=== PATIENT | female | born 1975 | race Caucasian/White ===

== ENCOUNTER 2019-04-26 10:19 | Inpatient (IN) ==
[2019-04-26 10:59] LABS: Basophils # (auto) 0.05 K/uL (0-0.2); Basophils % (auto) 0.9 %; Eosinophils # (auto) 0.23 K/uL (0-0.5); Eosinophils % (auto) 3.9 %; Hematocrit (blood only) 37.8 % (37-47); Immature Granulocytes # (auto) 0.02 K/uL (0.00-0.02); Immature Granulocytes % (auto) 0.3 %; Lymphocytes # (auto) 1.69 K/uL (1.2-3.4); Mean Corpuscular Hemoglobin 30.7 pg (25-34); Mean Corpuscular Hgb Conc 34.4 g/dL (32-36); Mean Corpuscular Volume 89.2 fL (80-100); Monocytes # (auto) 0.52 K/uL (0.11-0.59); Monocytes % (auto) 8.9 %; Neutrophils # (auto) 3.32 K/uL (1.4-6.5); Platelet Count 280 K/uL (130-400); RDW Coefficient of Variation 12.9 % (11.5-14.5); RDW Standard Deviation 41.4 fL (36.4-46.3); Red Blood Count 4.24 M/uL (4.2-5.4); White Blood Count 5.83 K/uL (4.8-10.8)
[2019-04-26 11:15] LABS: Partial Thromboplastin Ratio 0.9; Partial Thromboplastin Time 24.5 Seconds (21.0-31.0); Prothrombin Time 10.1 Seconds (9.0-12.0)
[2019-04-26 11:18] LABS: Alanine Aminotransferase 23 U/L (12-78); Aspartate Aminotransferase 12 U/L (15-37); BUN Creatinine Ratio 15.7 (10-20); Blood Urea Nitrogen 14 mg/dl (7-18); Carbon Dioxide 24 mmol/L (21-32); Chloride 109 mmol/L (98-107); Creatinine Clr Calc Pharmacy 85.3 ml/min; Est GFR (African American) 93.3; Est GFR (Non-African American) 80.5; Glucose 101 mg/dl (70-99); Sodium 139 mmol/L (136-145)
--- NOTE | 2019-04-26 11:20 | XRay Report ---
XR chest 1V portable CLINICAL HISTORY: Chest pain. COMPARISON STUDY: No previous studies for comparison. FINDINGS: Lung volumes are normal. Lungs are clear. There is no pneumothorax or pleural effusion. Car diac size is normal. Mediastinal contours are normal. There is no evidence for pulmonary edema. IMPRESSION: No acute cardiopulmonary findings. Electronically signed by: Omar Basilio M.D. 04/26/2019 11:19 AM
[2019-04-26 11:22] LABS: Albumin Globulin Ratio 1.2 (0.9-2); Alkaline Phosphatase 52 U/L (45-117); Bilirubin,Total 0.5 mg/dl (0.2-1); Globulin 3.3 gm/dl (2.5-4.0); Total Protein 7.3 gm/dl (6.4-8.2); Troponin I < 0.015 ng/ml (0-0.045)
[2019-04-26] MEDS ORDERED: FAMOTIDINE 20MG/5ML IV PUSH IV STA (12:35)
[2019-04-26] MEDS ORDERED: ALUMINUM/MAGNESIUM SUSP 30 ML UDC PO STA (12:35)
[2019-04-26 12:51] LABS: D Dimer 2460 ug/L FEU (0-500)
[2019-04-26] MEDS ORDERED: SODIUM CHLORIDE 0.9% 1000ML 1,000 ML IV ONE (13:00)
[2019-04-26] MEDS ORDERED: OPTIRAY 320 125ml IV PRN (13:20)
--- NOTE | 2019-04-26 13:40 | CT Scan Report ---
CT ANGIOGRAPHY OF THE CHEST, PULMONARY EMBOLUS PROTOCOL CLINICAL HISTORY: Chest pain. COMPARISON STUDY: Chest radiograph performed earlier today. TECHNIQUE: Following IV administration of 120 mL of Optiray-320, helical axial images of the chest we re obtained utilizing the pulmonary embolus protocol. Maximal intensity projections and sagittal and coronal reformats were viewed on an independent 3D workstation. IV contrast was administered withou t complication. Automated exposure control was utilized for the study. A dose lowering technique wa s utilized adhering to the principles of ALARA. CT DOSE: 268.79 mGy.cm FINDINGS: No pulmonary emboli are identified. There is no thoracic aortic dissection. The size of th e heart is normal. There is no pericardial effusion. No axillary lymphadenopathy is present. Multiple moderately enlarged mediastinal lymph nodes are noted. Index subcarinal lymph node measures 1.4 cm i n short axis diameter. Index precarinal lymph node measures 1.3 cm in short axis diameter. There are mildly enlarged bilateral hilar lymph nodes. Central airways are patent. Note is made of an irregular 1.2 cm perifissural nodular opacity within the right middle lobe on axial image 127 of 243. Otherwis e, the lungs are clear. Bony thorax is unremarkable. Upper abdomen is unremarkable. IMPRESSION: 1. No pulmonary emboli identified. 2. Multiple moderately enlarged mediastinal lymph nodes with mildly enlarged bilateral hilar lymph no inna. This lymphadenopathy is nonspecific. A differential consideration is sarcoidosis. Lymphoma could appear similar. Metastatic disease is also within the differential but considered less likely. Pulmo nary consultation is recommended. 3. 1.2 cm perifissural nodular opacity within the right middle lobe. This favors a mild infectious or inflammatory process. A neoplastic process is considered less likely however a follow-up chest CT in 3 months is recommended. Electronically signed by: Omar Basilio M.D. 04/26/2019 1:39 PM
--- NOTE | 2019-04-26 15:19 | History & Physical Report ---
Date of Service April 26, 2019 Assessment & Plan (1) Lymphadenopathy, hilar: This is a 44-year-old female with a PMH of anxiety, eosinophilic esophagitis and palpitations who presents to the ED with worsening chest pain since yesterday and was found to have an abnormal chest CTA. -Endorses nonspecific, constant chest pain for the past year that does not seem to be worse with exertion -No shortness of breath. Oxygen saturation of 99% on room air -D-dimer was elevated at 2460 and chest CTA negative for PE but showed multiple moderately enlarged mediastinal lymph nodes with mildly enlarged bilateral hilar lymph nodes. This lymphadenopathy is nonspecific and a differential conside ration is sarcoidosis or lymphoma. There is also presence of a 1.2 cm perifissural nodular opacity within the right middle lobe -ED provider discussed with Dr. Delcid of pulmonology, who recommends a b ronchoscopy tomorrow or Tuesday -ESR, CRP, procalcitonin, TSH, CHANTLEL and GLORIA ordered -NPO after midnight (2) Chest pain: Seems non-cardiac in nature. Initial troponin negative, EKG with normal sinus rhythm -Will order an additional troponin for completeness -Anxiety likely contributing, also possible underlying lung pathology (3) Anxiety: Continue Buspar -Only takes as needed, trialed Lexapro in the past but did not tolerate well (4) Eosinophilic esophagitis: Controlled with PPI (5) Palpitations: Currently asymptomatic -EKG with normal sinus rhythm -Continue propranolol DVT Ppx: Wilbert grace Code status: FULL PCP: Lindy Dispo: Admitted to med/surg. Plan to return home once medically stable. Patient seen in collaboration with Dr. Kyle. Please see addendum. History of Present Illness Chief Complaint: Chest pain Primary Care Provider: Arnulfo Israel MD This is a 44-year-old female with a PMH of anxiety, eosinophilic esophagitis and palpitations who presents to the ED with worsening chest pain since yesterday. Patient endorses nonspecific, constant chest pain for the past year that does not seem to be worse with exertion. Pain is nonradiating and not associated with diaphoresis, shortness of breath, nausea or vomiting. Used to associate chest discomfort with palpitations but lately chest pain has worsened. Has been taking propranolol for the past year for palpitations but denies any further work-up. Patient increased her dose to twice a day a few weeks ago without improvement. Denies any personal or family history of coronary artery disease. No history of diabetes. Former smoker. In ED, patient found to be afebrile and hemodynamically stable. Oxygen saturation of 99% on room air. No leukocytosis or electrolyte abnormalities. Initial troponin negative. D-dimer elevated at 2460 so chest CTA was obtained that was negative for PE but showed multiple moderately enlarged mediastinal lymph nodes with mildly enlarged bilateral hilar lymph nodes. This lymphadenopathy is nonspecific and a differential consideration is sarcoidosis or lymphoma. There is also presence of a 1.2 cm perifissural nodular opacity within the right middle lobe. ED provider discussed with Dr. Delcid of pulmonology, who recommends a bronchoscopy tomorrow or Tuesday. Currently, patient is comfortable with 2/10 chest pain. Denies any fever, chills, lightheadedness, visual changes, palpitations, shortness of breath, nausea, vomiting, abdominal pain, dysuria or constipation. Endorses diarrhea for the past 2 years. Allergies Allergy/AdvReac Type Severity Reaction Status Date / Time No Known Allergies Allergy Verified 04/26/19 13:02 Home Medications Home Medications Medication Instructions Recorded Confirmed Type omeprazole 20 mg PO BID 01/16/19 04/26/19 History propranolol 10 mg PO BID 01/16/19 04/26/19 History buspirone 5 mg PO DAILY PRN 04/26/19 04/26/19 History Past Med/Surg History Medical History Acid reflux (Chronic) Eosinophilic esophagitis (Chronic) Palpitations (Chronic) Surgical History History of section (Chronic) Family History Other Coronary heart disease Crohn's disease Social History Preferred Language: Kazakh Communication Ability: Effective Furnace Puncher Required: No Beliefs That Will Affect Care: None Current Living Situation: Spouse current occupational status: employed Other Information That Helps Us Care for You: No Feels Safe at Home: Yes Safety Concerns: Feels Safe At This Time Smoking Status: Former smoker Hx Alcohol Use: Yes Alcohol type: wine and hard liquor Alcohol Intake Frequency: Weekly Hx Substance Use: No Review of Systems Review of Systems: At least ten systems reviewed and negative except as noted in the HPI. Physical Exam Physical Exam: General Appearance: WD/WN, vitals as above, NAD, sitting up in bed, pleasant, conversing easily Head: normocephalic, atraumatic Eyes: normal inspection, PERRL, conjunctivae normal, anicteric sclerae ENT: external ear and nose normal, oropharynx normal Neck: trachea midline, no thyromegaly normal visual inspection Respiratory: lungs clear to auscultation, no wheeze, rales, rhonchi. Normal insp/exp effort, no accessory muscle use Cardiovascular: regular rate, rhythm, no murmur, normal peripheral pulses. Vessels: no JVD or carotid bruit Chest: normal inspection of chest, no TTP of chest Abdomen/GI: normal bowel sounds, soft, nontender, no hepatosplenomegaly Extremities/Musculoskelatal: no cyanosis or clubbing, extremities motor strength 5/5 Neurologic: PERRL, EOMI, accommodation nl, no face palsy, no dysarthria CN's II-XI intact bilaterally and moves all extremities Psychiatric: A+Ox3, + anxious Skin: no rashes, normal color, warm/dry Results & Data Vital Signs (Past 12 Hours) Vital Signs Temp Pulse Pulse Resp BP BP Pulse Ox 04/26/19 14:20 68 20 112/68 99 04/26/19 12:31 74 20 122/63 98 04/26/19 11:43 63 20 132/71 94 04/26/19 10:32 36.9 C 66 20 119/72 100 Laboratory Results Short CBC 04/26/19 04/26/19 04/26/19 Range/Units 10:49 10:49 10:49 WBC 5.83 (4.8-10.8) K/uL RBC 4.24 (4.2-5.4) M/uL Hgb 13.0 (12.0-16.0) g/dL Hct 37.8 (37-47) % MCV 89.2 (80-100) fL MCH 30.7 (25-34) pg MCHC 34.4 (32-36) g/dL RDW Std Deviation 41.4 (36.4-46.3) fL RDW Coeff of Nabil 12.9 (11.5-14.5) % Plt Count 280 (130-400) K/uL MPV 10.0 (7.4-10.4) fL Immature Gran % (Auto) 0.3 % Neut % (Auto) 57.0 % Lymph % (Auto) 29.0 % Waldo % (Auto) 8.9 % Eos % (Auto) 3.9 % Baso % (Auto) 0.9 % Immature Gran # (Auto) 0.02 (0.00-0.02) K/uL Neut # (Auto) 3.32 (1.4-6.5) K/uL Lymph # (Auto) 1.69 (1.2-3.4) K/uL Waldo # (Auto) 0.52 (0.11-0.59) K/uL Eos # (Auto) 0.23 (0-0.5) K/uL Baso # (Auto) 0.05 (0-0.2) K/uL PT 10.1 (9.0-12.0) Seconds INR 1.0 (0.9-1.1) APTT 24.5 (21.0-31.0) Seconds PTT Ratio 0.9 D-Dimer (0-500) ug/L FEU Sodium 139 (136-145) mmol/L Potassium 4.0 (3.5-5.1) mmol/L Chloride 109 H (98-107) mmol/L Carbon Dioxide 24 (21-32) mmol/L Anion Gap 7.0 (3-11) BUN 14 (7-18) mg/dl Creatinine 0.88 (0.6-1.2) mg/dl Est Cr Clr Drug Dosing 85.3 ml/min Est GFR ( Amer) 93.3 Est GFR (Non-Af Amer) 80.5 BUN/Creatinine Ratio 15.7 (10-20) Glucose 101 H (70-99) mg/dl Calcium 9.0 (8.5-10.1) mg/dl Total Bilirubin 0.5 (0.2-1) mg/dl AST 12 L (15-37) U/L ALT 23 (12-78) U/L Alkaline Phosphatase 52 (45-117) U/L Troponin I < 0.015 (0-0.045) ng/ml Total Protein 7.3 (6.4-8.2) gm/dl Albumin 4.0 (3.4-5.0) gm/dl Globulin 3.3 (2.5-4.0) gm/dl Albumin/Globulin Ratio 1.2 (0.9-2) 04/26/19 Range/Units 10:49 WBC (4.8-10.8) K/uL RBC (4.2-5.4) M/uL Hgb (12.0-16.0) g/dL Hct (37-47) % MCV (80-100) fL MCH (25-34) pg MCHC (32-36) g/dL RDW Std Deviation (36.4-46.3) fL RDW Coeff of Nabil (11.5-14.5) % Plt Count (130-400) K/uL MPV (7.4-10.4) fL Immature Gran % (Auto) % Neut % (Auto) % Lymph % (Auto) % Waldo % (Auto) % Eos % (Auto) % Baso % (Auto) % Immature Gran # (Auto) (0.00-0.02) K/uL Neut # (Auto) (1.4-6.5) K/uL Lymph # (Auto) (1.2-3.4) K/uL Waldo # (Auto) (0.11-0.59) K/uL Eos # (Auto) (0-0.5) K/uL Baso # (Auto) (0-0.2) K/uL PT (9.0-12.0) Seconds INR (0.9-1.1) APTT (21.0-31.0) Seconds PTT Ratio D-Dimer 2460 H* (0-500) ug/L FEU Sodium (136-145) mmol/L Potassium (3.5-5.1) mmol/L Chloride (98-107) mmol/L Carbon Dioxide (21-32) mmol/L Anion Gap (3-11) BUN (7-18) mg/dl Creatinine (0.6-1.2) mg/dl Est Cr Clr Drug Dosing ml/min Est GFR ( Amer) Est GFR (Non-Af Amer) BUN/Creatinine Ratio (10-20) Glucose (70-99) mg/dl Calcium (8.5-10.1) mg/dl Total Bilirubin (0.2-1) mg/dl AST (15-37) U/L ALT (12-78) U/L Alkaline Phosphatase (45-117) U/L Troponin I (0-0.045) ng/ml Total Protein (6.4-8.2) gm/dl Albumin (3.4-5.0) gm/dl Globulin (2.5-4.0) gm/dl Albumin/Globulin Ratio (0.9-2) BMP 04/26/19 10:49 Sodium 139 Potassium 4.0 Chloride 109 H Carbon Dioxide 24 BUN 14 Creatinine 0.88 Glucose 101 H Calcium 9.0 Cardiac Enzymes 04/26/19 Range/Units 10:49 Troponin I < 0.015 (0-0.045) ng/ml Liver Function 04/26/19 Range/Units 10:49 Total Bilirubin 0.5 (0.2-1) mg/dl AST 12 L (15-37) U/L ALT 23 (12-78) U/L Alkaline Phosphatase 52 (45-117) U/L Albumin 4.0 (3.4-5.0) gm/dl Diagnostic Findings CXR: IMPRESSION: No acute cardiopulmonary findings. Chest CTA: IMPRESSION: 1. No pulmonary emboli identified. 2. Multiple moderately enlarged mediastinal lymph nodes with mildly enlarged bilateral hilar lymph nodes. This lymphadenopathy is nonspecific. A differential consideration is sarcoidosis. Lymphoma could appear similar. Metastatic disease is also within the differential but considered less likely. Pulmonary consultation is recommended. 3. 1.2 cm perifissural nodular opacity within the right middle lobe. This favors a mild infectious or inflammatory process. A neoplastic process is considered less likely however a follow-up chest CT in 3 months is recommended. ECG Rhythm: normal sinus Supervising Physician Co-Signing Physician Notes I have seen and examined the patient with physician assistant import manager and would like to comment that: This is a 44-year-old female with a PMH of anxiety, eosinophilic esophagitis and palpitations who presents to the ED with worsening chest pain since yesterday, however also notes that she has been feeling on and off chest discomforts for one year. Patient was found to have elevated D-dimer and CTA of the lungs were performed and found abnormal results of Multiple moderately enlarged mediastinal lymph nodes with mildly enlarged bilateral hilar lymph nodes. This lymphadenopathy is nonspecific. A differential consideration is sarcoidosis. Lymphoma could appear similar. Metastatic disease is also within the differential but considered less likely. Pulmonary consultation is recommended. 1.2 cm perifissural nodular opacity within the right middle lobe. This favors a mild infectious or inflammatory process. A neoplastic process is considered less likely however a follow-up chest CT in 3 months is recommended. On physical exam: General: no acute distress Lungs: breathing on room air, normal respiratory effort, generally good air entry and exhalation Heart: regular rate Chest: no tenderness to palpation Abdomen: soft, nontender, positive bowel sounds Extremities: no edema Patients chest discomfort symptoms primarily attributed to these lung findings as admission EKG is nonischemic and negative troponin. The emergency room physician and patient discussed broad differentials for the Hilar Lymphadenopathy and suggested possibilities of autoimmune etiology such as sarcoidosis, or in a worst case scenario of malignancy such as lymphoma The emergency room physician then contacted pulmonary physician about lung biopsy to which pulmonary service initially agreed that they can do the invasive testing on 04/27/19. However, after further review, the pulmonary service will not be able to do bronchoscopy and Endobronchial ultrasound (EBUS) until Tuesday04/30/19 if the patient remains inpatient. Discussed with patient about these logistical issues. Efforts are being coordinated for outpatient workup if inpatient options are not possible Currently labs show normal white blood cell count, normal ESR of 18, normal C- reactive protein of less than 0.29, normal TSH of 1.22. Angiotensin Convert Enzymes pending Diagnosis of Hilar Lymphadenopathy, Chest pain (likely related to abnormal CTA scan findings of Hilar Hilar Lymphadenopathy), Anxiety (1) Chest pain Chest pain type: unspecified Qualified Code(s): R07.9 - Chest pain, unspecified
[2019-04-26] MEDS ORDERED: ACETAMINOPHEN 325 MG TAB PO PRN (16:15)
[2019-04-26] MEDS ORDERED: ONDANSETRON INJ 2 MG/ML 2 ML VIAL IV PRN (16:15)
[2019-04-26] MEDS ORDERED: POLYETHYLENE (MIRALAX) 17 GM PACK PO PRN (16:15)
[2019-04-26 16:22] LABS: C Reactive Protein < 0.29 mg/dl (0-0.29); Creatine Kinase 120 U/L (26-192)
[2019-04-26 17:27] LABS: Troponin I < 0.015 ng/ml (0-0.045)
[2019-04-26 19:39] LABS: T4 Free Thyroxine 1.01 ng/dl (0.8-1.6)
--- NOTE | 2019-04-26 20:00 | Discharge Summary ---
Date of Service April 26, 2019 Admission HPI Per Admitting Provider This is a 44-year-old female with a PMH of anxiety, eosinophilic esophagitis and palpitations who presents to the ED with worsening chest pain since yesterday. Patient endorses nonspecific, constant chest pain for the past year that does not seem to be worse with exertion. Pain is nonradiating and not associated with diaphoresis, shortness of breath, nausea or vomiting. Used to associate chest discomfort with palpitations but lately chest pain has worsened. Has been taking propranolol for the past year for palpitations but denies any further work-up. Patient increased her dose to twice a day a few weeks ago without improvement. Denies any personal or family history of coronary artery disease. No history of diabetes. Former smoker. In ED, patient found to be afebrile and hemodynamically stable. Oxygen saturation of 99% on room air. No leukocytosis or electrolyte abnormalities. Initial troponin negative. D-dimer elevated at 2460 so chest CTA was obtained that was negative for PE but showed multiple moderately enlarged mediastinal lymph nodes with mildly enlarged bilateral hilar lymph nodes. This lymphadenopathy is nonspecific and a differential consideration is sarcoidosis or lymphoma. There is also presence of a 1.2 cm perifissural nodular opacity within the right middle lobe. ED provider discussed with Dr. Delcid of pulmonology, who recommends a bronchoscopy tomorrow or Tuesday. Currently, patient is comfortable with 2/10 chest pain. Denies any fever, chills, lightheadedness, visual changes, palpitations, shortness of breath, nausea, vomiting, abdominal pain, dysuria or constipation. Endorses diarrhea for the past 2 years. Admission Exam Per Admitting Provider Physical Exam: General Appearance: WD/WN, vitals as above, NAD, sitting up in bed, pleasant, conversing easily Head: normocephalic, atraumatic Eyes: normal inspection, PERRL, conjunctivae normal, anicteric sclerae ENT: external ear and nose normal, oropharynx normal Neck: trachea midline, no thyromegaly normal visual inspection Respiratory: lungs clear to auscultation, no wheeze, rales, rhonchi. Normal insp/exp effort, no accessory muscle use Cardiovascular: regular rate, rhythm, no murmur, normal peripheral pulses. Vessels: no JVD or carotid bruit Chest: normal inspection of chest, no TTP of chest Abdomen/GI: normal bowel sounds, soft, nontender, no hepatosplenomegaly Extremities/Musculoskelatal: no cyanosis or clubbing, extremities motor strength 5/5 Neurologic: PERRL, EOMI, accommodation nl, no face palsy, no dysarthria CN's II-XI intact bilaterally and moves all extremities Psychiatric: A+Ox3, + anxious Skin: no rashes, normal color, warm/dry Principal Diagnosis Hilar Lymphadenopathy, Chest pain (likely related to abnormal CTA scan findings of Hilar Hilar Lymphadenopathy) or gastroesophageal reflux disease (GERD), Anxiety Discharge Exam Constitutional WD/WN, vitals as above Eyes PERRL, conjunctivae normal, anicteric sclerae EOM intact bilaterally ENMT external ear and nose normal, oropharynx normal Neck trachea midline, no thyromegaly normal visual inspection Respiratory normal respiratory effort, lungs clear to auscultation Cardiovascular RRR, no murmur, no edema Gastrointestinal (Abdomen) normal bowel sounds, soft, nontender, no hepatosplenomegaly Musculoskeletal no cyanosis or clubbing, extremities motor strength 5/5 Neurologic PERRL, EOMI, accommodation nl, no face palsy, no dysarthria CN's II-XI intact bilaterally Psychiatric A+Ox3, euthymic affect Discharge Data Allergies Allergy/AdvReac Type Severity Reaction Status Date / Time No Known Allergies Allergy Verified 04/26/19 13:02 Consultations 04/26/19 15:00 ED Decision to Admit Stat 04/26/19 16:15 Consult Pulmonology Routine Ordered Studies 04/26/19 13:00 CT angio chest PE protocol Stat Hospital Course (1) Lymphadenopathy, hilar: This is a 44-year-old female with a PMH of anxiety, eosinophilic esop hagitis and palpitations who presents to the ED with worsening chest pain since yesterday, however also notes that she has been feeling on and off chest discomforts for one year. Patient was found to have elevated D-dimer and CTA of the lungs were performed and found abnormal results of Multiple moderately enlarged mediastinal lymph nodes with mildly enlarged bilateral hilar lymph nodes. This lymphadenopathy is nonspecific. A differential consideration is sarcoidosis. Lymphoma could appear similar. Metastatic disease is also within the differential but considered less likely. Pulmonary co nsultation is recommended. 1.2 cm perifissural nodular opacity within the right middle lobe. This favors a mild infectious or inflammatory process. A neoplastic process is considered less likely however a follow-up chest CT in 3 months is recommended. On physical exam: General: no acute distress Lungs: breathing on room air, normal respiratory effort, generally good air entry and exhalation Heart: regular rate Chest: no tenderness to palpation Abdomen: soft, nontender, positive bowel sounds Extremities: no edema Patients chest discomfort symptoms primarily attributed to these lung findings as admission EKG is nonischemic and negative troponin. The emergency room physician and patient discussed broad differentials for the Hilar Lymphadenopathy and suggested possibilities of autoimmune etiology such as sarcoidosis, or in a worst case scenario of malignancy such as lymphoma The emergency room physician then contacted pulmonary physician about lung biopsy to which pulmonary service initially agreed that they can do the invasive testing on 04/27/19. However, after further review, the pulmonary service will not be able to do bronchoscopy and Endobronchial ultrasound (EBUS) until Tuesday04/30/19 if the patient remains inpatient. Discussed with patient about these logistical issues. Efforts are being coordinated for outpatient workup if inpatient options are not possible Currently labs show normal white blood cell count, normal ESR of 18, normal C- reactive protein of less than 0.29, normal TSH of 1.22. troponin negative x 2, CHANTELL screen pending, Angiotensin Convert Enzymes pending, Vitamin D,25 Hydrox pending, Vitamin D1,25 Dihydroxy pending Pulmonary service advised outpatient bronchoscopy and Endobronchial ultrasound (EBUS) which they will coordinate and advised that patient be discharged on gastric reflux medication in case GERD was contributory. Prescription of Pantoprazole 40 mg daily given to the patient Patient may continue home medications including buspirone and propranolol for anxiety and history of palpitations Total Time Total Time Spent Total Time Spent (In Minutes): 40 minutes Total Time Includes: Examination of the Patient, Discharge Planning, Medication Reconciliation and Communication With Other Providers Discharge Plan Discharge Items Patient Disposition: Home - Self-Care Reason For Visit: CHEST PAIN, ABNORMAL CHEST CTA RESULTS Discharge Diagnosis: Hilar Lymphadenopathy, Chest pain (likely related to abnormal CTA scan findings of Hilar Hilar Lymphadenopathy) or gastroesophageal reflux disease (GERD), Anxiety Condition on Discharge: Good Activity: Resume your previous activity Non-emergency contact: Primary Care Provider and [employer] K[employer] Call non-emergency contact if: you have any medication questions Follow-up/Referrals: Arnulfo Israel MD [Primary Care Provider] - Diet: Regular Addtl Attending Provider Instructions: This is a 44-year-old female with a PMH of anxiety, eosinophilic esophagitis and palpitations who presents to the ED with worsening chest pain since yesterday, however also notes that she has been feeling on and off chest discomforts for one year. Patient was found to have elevated D-dimer and CTA of the lungs were performed and found abnormal results of Multiple moderately enlarged mediastinal lymph nodes with mildly enlarged bilateral hilar lymph nodes. This lymphadenopathy is nonspecific. A differential consideration is sarcoidosis. Lymphoma could appear similar. Metastatic disease is also within the differential but considered less likely. Pulmonary consultation is recommended. 1.2 cm perifissural nodular opacity within the right middle lobe. This favors a mild infectious or inflammatory process. A neoplastic process is considered less likely however a follow-up chest CT in 3 months is recommended. On physical exam: General: no acute distress Lungs: breathing on room air, normal respiratory effort, generally good air entry and exhalation Heart: regular rate Chest: no tenderness to palpation Abdomen: soft, nontender, positive bowel sounds Extremities: no edema Patients chest discomfort symptoms primarily attributed to these lung findings as admission EKG is nonischemic and negative troponin. The emergency room physician and patient discussed broad differentials for the Hilar Lymphadenopathy and suggested possibilities of autoimmune etiology such as sarcoidosis, or in a worst case scenario of malignancy such as lymphoma The emergency room physician then contacted pulmonary physician about lung biopsy to which pulmonary service initially agreed that they can do the invasive testing on 04/27/19. However, after further review, the pulmonary service will not be able to do bronchoscopy and Endobronchial ultrasound (EBUS) until Tuesday04/30/19 if the patient remains inpatient. Discussed with patient about these logistical issues. Efforts are being coordinated for outpatient workup if inpatient options are not possible Currently labs show normal white blood cell count, normal ESR of 18, normal C- reactive protein of less than 0.29, normal TSH of 1.22. troponin negative x 2, CHANTELL screen pending, Angiotensin Convert Enzymes pending, Vitamin D,25 Hydrox pending, Vitamin D1,25 Dihydroxy pending Pulmonary service advised outpatient bronchoscopy and Endobronchial ultrasound (EBUS) which they will coordinate and advised that patient be discharged on gastric reflux medication in case GERD was contributory. Prescription of Pantoprazole 40 mg daily given to the patient Patient may continue home medications including buspirone and propranolol for anxiety and history of palpitations Pending Studies at Discharge: Yes Studies:: CHANTELL screen pending, Angiotensin Convert Enzymes pending, Vitamin D,25 Hydrox pending, Vitamin D1,25 Dihydroxy pending Stand-Alone Forms: Call Back Authorization, [facility], Smoking Cessation Medications and DC Order Prescriptions: New pantoprazole 40 mg tablet,delayed release (DR/EC) 40 mg PO DAILY 30 Days Qty: 30 RF: 0 Continued propranolol 10 mg tablet 10 mg PO BID RF: 0 buspirone 10 mg Tablet 5 mg PO DAILY PRN (Reason: Anxiety) RF: 0 Discontinued omeprazole 20 mg capsule,delayed release(DR/EC) 20 mg PO BID RF: 0 Discharge Orders: Discharge Order (Routine); Ordered 04/26/19 Ordered By: Bryan Kyle Admission Data Admit Date/Time: 04/26/19 15:23 Attending Provider: Bryan Kyle Admit Provider: Bryan Kyle Primary Care Provider: Arnulfo Israel Other Providers: Bryan Kyle ; Angelica Delcid
[2019-04-26] MEDS ORDERED: PROPRANOLOL HCL 10 MG TAB PO SCH (21:00)
[2019-04-26] MEDS ORDERED: PANTOprazole 40 MG TAB PO SCH (21:00)
--- NOTE | 2019-04-27 18:51 | Emergency Department Note ---
Entered by Wes Brown acting as a scribe for Radha Anderson DO History of Present Illness General Chief complaint: Chest Pain Stated complaint: CHEST PAIN, THROBBING NECK Time Seen by Provider: 04/26/19 11:11 Source: patient History of Present Illness Provider complaint: Chest pain Onset (ago): year(s) 1 Location: chest Pain Consistency: + constant and + other (Worsening) Maximum Pain Intensity: 3 Current Pain Intensity: 3 Quality: + burning, + sharp and + other (Throbbing) Relieved By: + none Associated symptoms: no nausea/vomiting and no shortness of breath The patient is a 44 year old female who presents to the Emergency Room with complaints of constant sharp, burning chest pain that has been ongoing for the past year. The patient rates the pain as a 3/10 and notes that last night the pain was worse than it normally is. The patient also endorses a throbbing pain in her neck and jaw that has been constant since the onset of the chest pain. T he patient reports that about a year ago she was put on beta blockers due to frequent palpitations but she has no other cardiac history. The patient notes that she has had a stress test, echo, and wore a monitor with exercise, which were all normal, but she had these done many years ago. The patient adds that for the past week she has been doubling her dose of beta blockers in the morning and night, taking 2 pills each time. Additionally the patient recalled that she was slightly lightheaded when she arrived at the ED, but she denies any nausea, or shortness of breath. She also recalls that last night she had some back pain which has resolved today. The patient does have a history of reflux and admits to not taking her Omeprazole regularly. She does note that this pain feels different than reflux. The patient has a family history of CAD and VA. Home Medications Home Medications Medication Instructions Recorded Confirmed Type propranolol 10 mg PO BID 01/16/19 04/26/19 History buspirone 5 mg PO DAILY PRN 04/26/19 04/26/19 History pantoprazole 40 mg PO DAILY 30 Days #30 tab 04/26/19 Rx Allergies Allergy/AdvReac Type Severity Reaction Status Date / Time No Known Allergies Allergy Verified 04/26/19 13:02 Past Med/Surg History Medical History Acid reflux (Chronic) Eosinophilic esophagitis (Chronic) Palpitations (Chronic) Surgical History History of section (Chronic) Family History Other Coronary heart disease Crohn's disease Social History Preferred Language: Albanian Communication Ability: Effective Mortgage Loan Specialist Required: No Beliefs That Will Affect Care: None Current Living Situation: Spouse current occupational status: employed Feels Safe at Home: Yes Smoking Status: Former smoker Hx Alcohol Use: Yes Alcohol type: wine and hard liquor Alcohol Intake Frequency: Weekly Hx Substance Use: No Review of Systems See HPI for pertinent positives & negatives. and A total of 10 systems reviewed and were otherwise negative Physical Exam Vital Signs Vital Signs - 24 hr 04/26/19 10:32 04/26/19 11:43 04/26/19 12:31 Temperature 98.4 F Temperature Source Oral Sepsis Recent Fever Within 48 Hours No Sepsis Action Taken by Nursing No Action Required Pulse Rate 66 Pulse Rate [Right Finger] 63 74 Pulse Rhythm Regular Pulse Strength Normal Respiratory Rate 20 20 20 Respiratory Effort / Characteristics Non-Labored Spontaneous Respiratory Depth Normal Respiratory Pattern Regular Blood Pressure 119/72 Blood Pressure [Right Arm] 132/71 122/63 Blood Pressure Mean 87 Blood Pressure Mean [Right Arm] 91 82 Blood Pressure Position Sitting Blood Pressure Position [Right Arm] Sitting Pulse Oximetry 100 94 98 Oxygen Delivery Method Room Air 04/26/19 14:20 Temperature Temperature Source Sepsis Recent Fever Within 48 Hours Sepsis Action Taken by Nursing Pulse Rate Pulse Rate [Right Finger] 68 Pulse Rhythm Pulse Strength Respiratory Rate 20 Respiratory Effort / Characteristics Respiratory Depth Respiratory Pattern Blood Pressure Blood Pressure [Right Arm] 112/68 Blood Pressure Mean Blood Pressure Mean [Right Arm] 82 Blood Pressure Position Blood Pressure Position [Right Arm] Pulse Oximetry 99 Oxygen Delivery Method Room Air GENERAL: alert, well appearing, well nourished, no distress, non-toxic EYE EXAM: normal conjunctiva, PERRL and EOM's grossly intact OROPHARYNX: no exudate, no erythema, lips, buccal mucosa, and tongue normal and mucous membranes are moist NECK: supple, no nuchal rigidity, no adenopathy, non-tender LUNGS: Clear to auscultation. Normal chest wall mechanics, no w/r/r HEART: no murmurs, S1 normal and S2 normal ABDOMEN: abdomen soft, non-tender, normo-active bowel sounds, no masses, no rebound or guarding. BACK: Back is symmetrical on inspection and there is no deformity, no midline tenderness, no CVA tenderness. SKIN: no rashes and no bruising UPPER EXTREMITIES: upper extremities are grossly normal. FROM, nml pulses b/l. LOWER EXTREMITIES: No pitting edema. FROM, nml pulses b/l. NEURO EXAM: Normal sensorium, cranial nerves II-XII grossly intact, normal speech, no gross weakness of arms, no gross weakness of legs. Course 1117: Past medical records reviewed. The patient was evaluated in room, and a complete history and physical examination were performed. 1300: I reevaluated the patient and updated her on results. 1426: I spoke to Dr. Bhavin Larose [facility] Sales Planner about the patient's case and he reviewed the CAT scan in the computer. He suggested to have the patient hospitalized under medicine if her symptoms are still present and they can see her in consult. If her symptoms are resolved and she is comfortable, she can be sent home to follow this up as an outpatient. 1445: I updated the patient with the plan of treatment and she is agreeable. 1457: I spoke to Angela Decker PAC under Dr. Saroj Nobles about the patient's case. They are going to accept the patient for further evaluation. Consultations Consultation #1: I spoke to Dr. Bhavin Larose [facility] Sales Planner about the patient's case so he is now aware. Time: 14:26 Consultation #2: I spoke to Angela Decker PAC under Dr. Saroj Nobles about the patient's case. They are going to accept the patient for further evaluation. Time: 14:57 Administered Medications Discontinued Medications Al Hydrox/Mg Hydrox/Simethicone (Maalox) 30 ml PO NOW STA Stop: 04/26/19 12:36 Last Admin: 04/26/19 13:40 Dose: 30 ml Documented by: [id number] Famotidine (Pepcid 20mg Iv Push) 20 mg IV ONE STA Stop: 04/26/19 12:36 Last Admin: 04/26/19 13:40 Dose: 20 mg Documented by: [id number] Sodium Chloride (Nss 1000ml) 1,000 mls @ 999 mls/hr IV .Q1H1M ONE Stop: 04/26/19 14:00 Last Infusion: 04/26/19 15:10 Dose: 0 mls/hr Documented by: [id number] Admin: 04/26/19 13:40 Dose: 999 mls/hr Documented by: [id number] Ioversol (Optiray 320 125ml) 120 ml IV ONCE PRN PRN Reason: Interaction Checking Stop: 04/30/19 13:19 Last Admin: 04/26/19 13:22 Dose: 120 ml Documented by: [id number] Pantoprazole Sodium (Protonix) 40 mg PO BID BRIDGER Stop: 05/26/19 20:59 Last Admin: 04/26/19 20:21 Dose: 40 mg Documented by: [id number] Medical Decision Making Differential Diagnosis Differential diagnoses includes but is not limited to acute coronary syndrome, myocardial infarction, pericarditis, pulmonary embolus, aortic dissection, pneumonia, pneumothorax, musculoskeletal, shingles, esophageal. Medical Records Attestation: I reviewed the patient's medical records. Home Medications Current Medication List: was personally reviewed by me Laboratory Data Attestation: I reviewed the patient's lab results. Result diagrams: 04/26/19 10:49 04/26/19 10:49 Lab Results 04/26/19 04/26/19 04/26/19 Range/Units 10:49 10:49 10:49 WBC 5.83 (4.8-10.8) K/uL RBC 4.24 (4.2-5.4) M/uL Hgb 13.0 (12.0-16.0) g/dL Hct 37.8 (37-47) % MCV 89.2 (80-100) fL MCH 30.7 (25-34) pg MCHC 34.4 (32-36) g/dL RDW Std Deviation 41.4 (36.4-46.3) fL RDW Coeff of Nabil 12.9 (11.5-14.5) % Plt Count 280 (130-400) K/uL MPV 10.0 (7.4-10.4) fL Immature Gran % (Auto) 0.3 % Neut % (Auto) 57.0 % Lymph % (Auto) 29.0 % [place] % (Auto) 8.9 % Eos % (Auto) 3.9 % Baso % (Auto) 0.9 % Immature Gran # (Auto) 0.02 (0.00-0.02) K/uL Neut # (Auto) 3.32 (1.4-6.5) K/uL Lymph # (Auto) 1.69 (1.2-3.4) K/uL [place] # (Auto) 0.52 (0.11-0.59) K/uL Eos # (Auto) 0.23 (0-0.5) K/uL Baso # (Auto) 0.05 (0-0.2) K/uL ESR (0-21) mm/hr PT 10.1 (9.0-12.0) Seconds INR 1.0 (0.9-1.1) APTT 24.5 (21.0-31.0) Seconds PTT Ratio 0.9 D-Dimer (0-500) ug/L FEU Sodium 139 (136-145) mmol/L Potassium 4.0 (3.5-5.1) mmol/L Chloride 109 H (98-107) mmol/L Carbon Dioxide 24 (21-32) mmol/L Anion Gap 7.0 (3-11) BUN 14 (7-18) mg/dl Creatinine 0.88 (0.6-1.2) mg/dl Est Cr Clr Drug Dosing 85.3 ml/min Est GFR ( Amer) 93.3 Est GFR (Non-Af Amer) 80.5 BUN/Creatinine Ratio 15.7 (10-20) Glucose 101 H (70-99) mg/dl Calcium 9.0 (8.5-10.1) mg/dl Total Bilirubin 0.5 (0.2-1) mg/dl AST 12 L (15-37) U/L ALT 23 (12-78) U/L Alkaline Phosphatase 52 (45-117) U/L Total Creatine Kinase (26-192) U/L Troponin I < 0.015 (0-0.045) ng/ml C-Reactive Protein (0-0.29) mg/dl Total Protein 7.3 (6.4-8.2) gm/dl Albumin 4.0 (3.4-5.0) gm/dl Globulin 3.3 (2.5-4.0) gm/dl Albumin/Globulin Ratio 1.2 (0.9-2) Procalcitonin (0-0.5) ng/ml TSH (0.300-4.500) uIu/ml 04/26/19 04/26/19 04/26/19 Range/Units 10:49 10:49 10:49 WBC (4.8-10.8) K/uL RBC (4.2-5.4) M/uL Hgb (12.0-16.0) g/dL Hct (37-47) % MCV (80-100) fL MCH (25-34) pg MCHC (32-36) g/dL RDW Std Deviation (36.4-46.3) fL RDW Coeff of Nabil (11.5-14.5) % Plt Count (130-400) K/uL MPV (7.4-10.4) fL Immature Gran % (Auto) % Neut % (Auto) % Lymph % (Auto) % [place] % (Auto) % Eos % (Auto) % Baso % (Auto) % Immature Gran # (Auto) (0.00-0.02) K/uL Neut # (Auto) (1.4-6.5) K/uL Lymph # (Auto) (1.2-3.4) K/uL [place] # (Auto) (0.11-0.59) K/uL Eos # (Auto) (0-0.5) K/uL Baso # (Auto) (0-0.2) K/uL ESR 18 (0-21) mm/hr PT (9.0-12.0) Seconds INR (0.9-1.1) APTT (21.0-31.0) Seconds PTT Ratio D-Dimer 2460 H* (0-500) ug/L FEU Sodium (136-145) mmol/L Potassium (3.5-5.1) mmol/L Chloride (98-107) mmol/L Carbon Dioxide (21-32) mmol/L Anion Gap (3-11) BUN (7-18) mg/dl Creatinine (0.6-1.2) mg/dl Est Cr Clr Drug Dosing ml/min Est GFR ( Amer) Est GFR (Non-Af Amer) BUN/Creatinine Ratio (10-20) Glucose (70-99) mg/dl Calcium (8.5-10.1) mg/dl Total Bilirubin (0.2-1) mg/dl AST (15-37) U/L ALT (12-78) U/L Alkaline Phosphatase (45-117) U/L Total Creatine Kinase 120 (26-192) U/L Troponin I (0-0.045) ng/ml C-Reactive Protein < 0.29 (0-0.29) mg/dl Total Protein (6.4-8.2) gm/dl Albumin (3.4-5.0) gm/dl Globulin (2.5-4.0) gm/dl Albumin/Globulin Ratio (0.9-2) Procalcitonin (0-0.5) ng/ml TSH 1.220 (0.300-4.500) uIu/ml 04/26/19 Range/Units 10:49 WBC (4.8-10.8) K/uL RBC (4.2-5.4) M/uL Hgb (12.0-16.0) g/dL Hct (37-47) % MCV (80-100) fL MCH (25-34) pg MCHC (32-36) g/dL RDW Std Deviation (36.4-46.3) fL RDW Coeff of Nabil (11.5-14.5) % Plt Count (130-400) K/uL MPV (7.4-10.4) fL Immature Gran % (Auto) % Neut % (Auto) % Lymph % (Auto) % [place] % (Auto) % Eos % (Auto) % Baso % (Auto) % Immature Gran # (Auto) (0.00-0.02) K/uL Neut # (Auto) (1.4-6.5) K/uL Lymph # (Auto) (1.2-3.4) K/uL [place] # (Auto) (0.11-0.59) K/uL Eos # (Auto) (0-0.5) K/uL Baso # (Auto) (0-0.2) K/uL ESR (0-21) mm/hr PT (9.0-12.0) Seconds INR (0.9-1.1) APTT (21.0-31.0) Seconds PTT Ratio D-Dimer (0-500) ug/L FEU Sodium (136-145) mmol/L Potassium (3.5-5.1) mmol/L Chloride (98-107) mmol/L Carbon Dioxide (21-32) mmol/L Anion Gap (3-11) BUN (7-18) mg/dl Creatinine (0.6-1.2) mg/dl Est Cr Clr Drug Dosing ml/min Est GFR ( Amer) Est GFR (Non-Af Amer) BUN/Creatinine Ratio (10-20) Glucose (70-99) mg/dl Calcium (8.5-10.1) mg/dl Total Bilirubin (0.2-1) mg/dl AST (15-37) U/L ALT (12-78) U/L Alkaline Phosphatase (45-117) U/L Total Creatine Kinase (26-192) U/L Troponin I (0-0.045) ng/ml C-Reactive Protein (0-0.29) mg/dl Total Protein (6.4-8.2) gm/dl Albumin (3.4-5.0) gm/dl Globulin (2.5-4.0) gm/dl Albumin/Globulin Ratio (0.9-2) Procalcitonin < 0.05 (0-0.5) ng/ml TSH (0.300-4.500) uIu/ml Imaging Data Radiologist's Impression: Radiology results as stated below per my review and the radiologist's interpretation: XR chest 1V portable CLINICAL HISTORY: Chest pain. COMPARISON STUDY: No previous studies for comparison. FINDINGS: Lung volumes are normal. Lungs are clear. There is no pneumothorax or pleural effusion. Cardiac size is normal. Mediastinal contours are normal. There is no evidence for pulmonary edema. IMPRESSION: No acute cardiopulmonary findings. Electronically signed by: Omar Basilio M.D. 04/26/2019 11:[address] ANGIOGRAPHY OF THE CHEST, PULMONARY EMBOLUS PROTOCOL CLINICAL HISTORY: Chest pain. COMPARISON STUDY: Chest radiograph performed earlier today. TECHNIQUE: Following IV administration of 120 mL of Optiray-320, helical axial images of the chest were obtained utilizing the pulmonary embolus protocol. Maximal intensity projections and sagittal and coronal reformats were viewed on an independent 3D workstation. IV contrast was administered without complication. Automated exposure control was utilized for the study. A dose lowering technique was utilized adhering to the principles of ALARA. CT DOSE: 268.79 mGy.cm FINDINGS: No pulmonary emboli are identified. There is no thoracic aortic dissection. The size of the heart is normal. There is no pericardial effusion. No axillary lymphadenopathy is present. Multiple moderately enlarged mediastinal lymph nodes are noted. Index subcarinal lymph node measures 1.4 cm in short axis diameter. Index precarinal lymph node measures 1.3 cm in short axis diameter. There are mildly enlarged bilateral hilar lymph nodes. Central airways are patent. Note is made of an irregular 1.2 cm perifissural nodular opacity within the right middle lobe on axial image 127 of 243. Otherwise, the lungs are clear. Bony thorax is unremarkable. Upper abdomen is unremarkable. IMPRESSION: 1. No pulmonary emboli identified. 2. Multiple moderately enlarged mediastinal lymph nodes with mildly enlarged bilateral hilar lymph nodes. This lymphadenopathy is nonspecific. A differential consideration is sarcoidosis. Lymphoma could appear similar. Metastatic disease is also within the differential but considered less likely. Pulmonary consultation is recommended. 3. 1.2 cm perifissural nodular opacity within the right middle lobe. This favors a mild infectious or inflammatory process. A neoplastic process is considered less likely however a follow-up chest CT in 3 months is recommended. Electronically signed by: Omar Basilio M.D. 04/26/2019 1:39 PM ECG Data Attestation: I personally reviewed and interpreted this ECG as follows: Indication: chest pain Rate (beats per minute): 66 Rhythm: normal sinus ECG [place]: Normal ECG ST segments: Normal ST segments ECG Findings: Other (Normal intervals, No PACs or PVCs) Blood Pressure Blood Pressure Findings: Normal blood pressure Blood Pressure Disposition: further management by hospitalist DEIDRA Narrative Patient with persistent atypical chest pain of unclear etiology. Initially GI medications were tried due to patient's history of eosinophilic esophagitis. Due to persistence of pain a d-dimer was added and found to be elevated so patient was sent for CT angiography of the chest. This revealed concerning hilar lymphadenopathy and need for pulmonary follow-up. Case was discussed with on-call pulmonology here who recommended that if patient felt improved and was asymptomatic, she could be safely discharged home to outpatient follow-up, [facility] er if she had persistent symptoms was uncomfortable with this plan, she should be admitted to the hospitalist and they would see in consult and discuss possible bronchoscopy and biopsy. Patient had persistent pain despite several medications, and due to persistent symptoms was concerned about going home. Case was discussed with hospitalist for additional inpatient evaluation. Patient was hemodynamically stable in the emergency room. I have a low suspicion for ACS, no evidence of PE on CT, no evidence of occult pneumonia, CHF, pericarditis/myocarditis, tamponade or effusion. Other may still be a component of GI pathology, the new hilar lymphadenopathy is most concerning at this time. Impression & Plan Chest pain, Lymphadenopathy, hilar Discharge Plan Visit Data *Final* Discharge Date/Time: 04/26/19 16:06 Chief Complaint: Chest Pain Stated Complaint: CHEST PAIN, THROBBING NECK ED Provider: Radha Anderson Discharge Problem: Chest pain, Lymphadenopathy, hilar Patient Disposition: Admitted As Inpatient Condition: Good Discharge Instructions Interventions: ED Discharge Assessment Last Done: 04/26/19 16:06 Discharge Problem: Chest pain Qualifiers: Chest pain type: unspecified Qualified Code(s): R07.9 - Chest pain, unspecified The scribe's documentation has been prepared under my direction and personally reviewed by me in its entirety. I confirm that the note above accurately reflects all work, treatment, procedures, and medical decision making performed by me.
[2019-04-30 18:16] LABS: Angiotensin Converting Enzyme 42 U/L (9-67); Anti Nuclear Antibody Screen NEGATIVE (NEGATIVE)
[2019-05-01 12:28] LABS: Vitamin D 1,25 49 pg/mL (18-72); Vitamin D3,1,25 49 pg/mL
--- NOTE | 2019-05-02 07:20 | Pulmonary Consultation ---
Date of Consultation May 02, 2019 Assessment & Plan (1) Lymphadenopathy, hilar: --Hilar lymphadenopathy with right upper lobe nodule No family history of sarcoidosis, no night sweats, no weight loss, no B symptoms. Plan to do the EBUS and flexible bronchoscopy Risks and benefits of procedure logging crew foreman the patient in depth. (2) Chest pain: Chest pain type: unspecified Qualified Code(s): R07.9 - Chest pain, unspecified (3) Anxiety: (4) Eosinophilic esophagitis: Supervising Physician Co-Signing Physician Notes I saw and evaluated the patient with Kvng Wagoner on 04/26/2019, and agree with findings and plan as documented in the note. 44-year-old female with a past medical history of anxiety, questionably eosinophilic esophagitis not on any medication, GERD came to the ER because of chest pain which is pleuritic in nature associated with cough with greenish-yellow phlegm going on for the last couple of days. Patient denied any dizziness, no headache, no nausea or vomiting. No fever or chills. Patient did say that she feels warm. Denied any weight loss. No diarrhea, no dysuria, no hematuria, no hemoptysis. Patient had a CTA done in the emergency department as her d-dimer was found to be elevated. CT of the chest showed right upper lobe nodule with diffuse mediastinal lymphadenopathy. Initial EKG and troponin were negative. Family history: No personal history of sarcoid, no family history of sarcoid, no history of asthma no history of lung cancer Social history: Former smoker, no illicit drug use, social alcohol. Allergies: No known drug allergies We will order GLORIA level, vitamin D level, ESR, CRP. Initial plan was to do [facility] coloscopy with E bus the following day but because of scheduling issues the procedure could not be performed till Tuesday. Plan was made to discharge the patient home and patient will come in as an outpatient on 05/02/2019 for the procedure. Patient understands and is willing to come on 05/02/2019. I have spent more than 50% of this 40 minute encounter in counseling and/or coordination of care with patient. History of Present Illness Attending Physician: Bryan Kyle MD History of Present Illness Attending: Dr. Delcid Is a 44-year-old female who was admitted for chest pain and found to have mediastinal lymphadenopathy. There is concern for sarcoidosis or lymphoma. We were consulted to perform EBUS during this admission. Patient was unable to have the ED but secondary to scheduling conflicts. Patient was discharged home and arrangements made to have outpatient procedure performed.Procedure was explained to the patient. Please do not bill the patient for this consult as no services were provided We will see the patient as an outpatient and perform the EBUSNext week Allergies Allergy/AdvReac Type Severity Reaction Status Date / Time No Known Allergies Allergy Verified 05/02/19 07:00 Home Medications Home Medications Medication Instructions Recorded Confirmed Type propranolol 10 mg PO BID 01/16/19 05/02/19 History buspirone 5 mg PO DAILY PRN 04/26/19 05/02/19 History pantoprazole 40 mg PO DAILY 30 Days #30 tab 04/26/19 05/02/19 Rx Patient History Surgical History History of section (Chronic) Social History Preferred Language: Thai Communication Ability: Effective Market Investigator Required: No Beliefs That Will Affect Care: None Current Living Situation: Spouse and Family current occupational status: employed Feels Safe at Home: Yes Safety Concerns: Feels Safe At This Time Smoking Status: Former smoker Tobacco Type: cigarettes ; Cigarettes Per Day: Patient has smoked on and off over most of her adult life. She was never a heavy smoker. She would only smoke a few cigarettes per day. She was able to quit smoking during with her children. She currently is a non-smoker. ; Do You Dip or Chew Tobacco: No ; Tobacco Cessation Education Requested by Patient: No Hx Alcohol Use: Yes Alcohol type: wine Alcohol Intake Frequency: Weekly Hx Substance Use: No during the past year weight has: remained stable Dental Care, Regularly: Yes Review of Systems Review of Systems: All systems reviewed & are unremarkable except as noted in HPI & below Physical Exam Physical Exam: Constitutional: No acute distress, anxious HEENT: EOMI, PERRLA Respiratory system: Good air entry bilaterally, no wheeze, no rhonchi, no crackles CVS: S1-S2 positive, no murmurs or gallops Abdomen: Soft, nontender, nondistended, positive bowel sounds x4 Extremities: +2 pulses bilaterally radialis/ dorsalis pedis, no edema, no cyanosis Neuro: Awake alert oriented x3 Psych: Normal mood and affect G/U: No Evans Skin: no rashes, warm and dry Lymphatic: no cervical or axillary lymphadenopathy PG Care Time/CCT Total # of Minutes Spent Total Time Spent with Patient: Total time spent is greater than 50% in coordination of care (as documented) at patient's floor/unit and/or counseling patient:30
== END 2019-04-26 20:27 | disposition home or self-care (01) | DRG 313 ==
LOC: ED 10:19 → 3W 15:23